=== PATIENT | male | born 2000 | race Caucasian/White ===

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

== ENCOUNTER 2022-02-20 12:23 | Emergency (ER) | payer MEDICAID, SELFPAY ==
[2022-02-20 12:29] VITALS: BP 142/72; PULSE 109; RESP 16; TEMP 36.8; O2SAT 100
--- NOTE | 2022-02-20 12:51 | ED.GENADUL_ITS ---
Discharge Plan Disposition Patient Disposition: HOME Condition: Stable Discharge Details Clinical Impression: Lumbago [facility]: Felecia Ruiz Home Meds and New Rx's Prescriptions: No Action No Known Home Meds 0RF Discharge Instructions Instructions: Low Back Strain (ED) Additional Instructions: Alternate Ice and heat, Take Tylenol or Ibuprofen every 4-6 hours with food as needed for pain and swelling. Take the Flexeril once up to three times daily as needed for muscle spasm. No evidence for UTI or blood in your urine. Follow up with PCP in 7-10 days. Return to ED or be seen sooner for any loss of bowel or bladder control, weakness, numbness, tingling or worsening. Stand Alone Forms: Work Release Discharge Data Discharge Date/Time-TO BE ENTERED AT DEPARTURE: 02/20/22 13:24 Medical Decision Making Please see HPI and physical exam. 21-year-old male presents with lower back pain, reports increased pain after getting out of his car approximately 4 hours prior to arrival. Denies any trauma, falls or heavy lifting initially however upon further questioning does report that he does a lot of bending at his job. Denies any loss of bowel or bladder control, no saddle anesthesia no weakness tingling numbness in his legs. At this time urinalysis ordered. Due to no midline tenderness or crepitus on physical exam x-rays not obtained at this time. If abnormalities in urine I will consider CT to rule out kidney stone. Urinalysis shows no hematuria, no evidence for UTI, no Leukocytes no Nitrites. I do suspect lumbar muscle strain based on exam and HPI. Will DC with Flexeril and give Lidocaine Patch. Discussed home care with patient instructed to alternate heat and ice take Tylenol and ibuprofen. Patient was given a work note for a few days. Patient was given Flexeril tablets to go. Discussed strict return instructions and follow-up care. This text was generated using Provenanceation system, please disregard any oddities of phrase or misspellings. HPI General Mode of arrival: ambulatory . Date/Time Provider Initiated Documentation: 02/20/22 12:39 . Limitations to Documentation: no limitations . Information obtained by: patient, RN notes reviewed and old records reviewed . HPI Narrative: 21 year old male presents to ED with Lower back pain which began 4 hours ago while driving. Describes as tight, and hurts with bending. Denies any loss of bowel or bladder control, no weakness. Reports heavy lifting at his job. Denies N/V/D, no dysuria, denies fever or chills. Patient endorses marijuana use. He did take Tylenol prior to arrival. Denies any other drugs or alcohol. He denie s any dysuria, gross blood in his urine or any other associated symptoms. Related Data Home Medications Medication Instructions Recorded Confirmed Unknown [No Known Home Meds] 02/20/22 02/20/22 Allergies Allergy/AdvReac Type Severity Reaction Status Date / Time Sulfa (Sulfonamide Allergy Other (See Verified 02/20/22 12:33 Antibiotics) Comment) General Stated Complaint: Nk/Back Pain SANTANA: 4 Review of Systems All systems reviewed & are unremarkable except as noted in HPI and below Constitutional Constitutional: Denies weakness ENT Ears, Nose, Mouth, and Throat: Denies neck pain Gastrointestinal Gastrointestinal: Denies fecal incontinence Genitourinary Genitourinary: Reports as per HPI, Denies hematuria, Denies difficulty urinating, Denies penile discharge, Denies urinary frequency, Denies urinary hesitancy and Denies urinary incontinence Musculoskeletal Musculoskeletal: Reports as per HPI, Denies abnormal gait, Reports back pain, Denies myalgias, Denies deformity, Denies loss of height, Denies muscle cramps, Denies muscle weakness, Denies neck pain, Denies numbness, Denies radiating pain into limb, Reports stiffness and Denies tingling Neurologic Neurologic: Denies abnormal gait, Denies numbness, Denies tingling and Denies weakness PFSH All Active Problems (Updated 02/20/22 @ 13:19 by Felecia Ruiz) Lumbago (Acute) Thyroid cyst (Acute) 04/20/2018 Medical History No acute medical problems Family History Mother Diabetes Type 1 Systemic lupus erythematosus Anemia Graves' disease Social History Smoking/Tobacco Use Status: Never Smoking risk assessment performed?: Yes Alcohol Intake: never Drug use: Never Substance use type: does not use Do you feel safe at home: Yes Do you feel safe in your relationship?: Yes Exam Narrative Exam Narrative: constitutional: Alert and oriented x3. Appears stated age. Normal body habitus. Head: Normocephalic, no trauma. Eyes: Pupils PERRL, Pupils 6mm Bilaterally, Equal and reactive, Red reflex noted, EOM's intact. Eyelids symmetrical without lesions, discharge, or swelling. Chest: RRR, Normal S1, S2, distal pulses intact. Resp: Lungs clear to auscultation bilaterally, no wheezes, rales, or rhonchi. Abdomen: Soft, non-distended, Normoactive bowel sounds all 4 quads. Nontender to palpation all 4 quadrants. Musculoskeletal: Normal gait, 5/5 strength to all four extremities. No midline C, T, or L spine tenderness, crepitus or step-off. He does have paraspinous muscle tightening bilaterally in the lower lumbar region. Skin: No suspicious rashes or lesions. Capillary refill less than 2 sec. Neurologic: Cranial nerves II-XII intact. Alert and oriented x 3. Motor: No deficits noted. Sensory: Intact bilaterally all 4 extremities. Course Vital Signs Vital signs: Vital Signs Temperature 36.8 C 02/20/22 12:29 Pulse 109 H 02/20/22 12:29 Respiratory Rate 16 02/20/22 12:29 Blood Pressure 142/72 H 02/20/22 12:29 Pulse Oximetry 100 02/20/22 12:29 Temperature 36.8 C 02/20/22 12:29 Temperature Source Temporal Artery Scan 02/20/22 12:29 Pulse 109 H 02/20/22 12:29 Respiratory Rate 16 02/20/22 12:29 Respiratory Effort 02/20/22 12:29 Blood Pressure 142/72 H 02/20/22 12:29 Blood Pressure Position Sitting 02/20/22 12:29 Pulse Oximetry 100 02/20/22 12:29 Oxygen Delivery Method Room Air 02/20/22 12:29 Oxygen Flow Rate 0 02/20/22 12:29 Pain Level 7 02/20/22 12:29
[2022-02-20 13:02] LABS: Bilirubin Negative (Negative); Blood Negative (Negative); Clarity Clear (Clear); Glucose Negative (Negative); Ketones Negative (Negative); Leukocyte Esterase Negative (Negative); Nitrite Negative (Negative); Specific Gravity >= 1.030 (1.005-1.025); Urobilinogen 0.2 EU/dL (Up TO 0.2)
[2022-02-20] MEDS: Ibuprofen 600 MG TAB PO (13:10)
[2022-02-20] MEDS: Cyclobenzaprine 10 MG TAB, 3 TABS/BTL PO (13:19)
[2022-02-20] MEDS: Lidocaine 5% Patch 1 PATCH TP (13:20)
== END 2022-02-20 13:24 | disposition home or self-care (01) ==
PROVIDERS: Emergency Provider Registered Nurse Emergency
DX: M54.50 Low back pain, unspecified (principal)
CPT/HCPCS: 99283; 81003

== ENCOUNTER 2022-04-01 10:45 | Emergency (ER) | payer MEDICAID, SELFPAY ==
[2022-04-01 10:52] VITALS: BP 132/84; PULSE 90; RESP 17; TEMP 37.2; O2SAT 99
--- NOTE | 2022-04-01 12:15 | DI.RAD_ITS ---
Exam(s) XR FOOT RT COMPLETE EXAM: XR FOOT RT COMPLETE CLINICAL HISTORY: trauma, dorsal and lateral foot pain. TECHNIQUE: 2D digital imaging was performed. Three views. COMPARISON: No exams were available for comparison FINDINGS: BONES: No acute fracture is present. No bony destructive lesion is seen. JOINTS: No dislocation present. SOFT TISSUE: Normal. IMPRESSION: Unremarkable radiographs of the right foot. DATA REPOSITORY: RADIATION DOSE DELIVERED:
--- NOTE | 2022-04-01 12:17 | W.ED.GENAD ---
Discharge Plan Disposition Patient Disposition: HOME Condition: Stable Discharge Details Clinical Impression: Foot injury Primary Care Provider: Unknown,Unknown ED Provider: Lucia Beaver Home Meds and New Rx's Prescriptions: No Action No Known Home Meds Discharge Instructions Instructions: Crutch Instructions (ED), Foot Contusion (ED) Additional Instructions: Please return immediately to the emergency department if you develop any new or worsening symptoms, if your condition does not improve as expected, or if you become otherwise concerned. It is extremely important that you call soon as possible to make an appointment to be seen in follow-up for this visit by your primary care doctor and orthopedics as we discussed. Referrals: Louie Roy MD [ [facility] STAFF PHYSICIAN] - Discharge Data Discharge Date/Time-TO BE ENTERED AT DEPARTURE: 04/01/22 14:01 Medical Decision Making Gerardo Saleh is a 21-year-old man without reported history of medical problems presenting to emergency department with right foot pain. Patient reports that just prior to arrival he was at work doing [email or web address] on a building. Patient reports that the dumpster the demo materials were going into was quite fall, and he threw a piece of countertop into the dumpster which slid back out of the dumpster and landed on his right foot. Patient reports that he has been unable to bear weight on the right foot since the injury. He states that he did not fall, did not get hurt anywhere else, did not hit his head, had no loss of consciousness. He denies any symptoms prior to injury. He denies any other pain, fever, cough, shortness of breath, vomiting, diarrhea, weakness, skin wound, rash. He denies numbness other than mild sensation of numbness to his right fourth and fifth toes. Patient reports pain only in the dorsolateral aspect of his right foot. Denies right-sided ankle pain, right-sided lower leg pain. On exam Pt is well and non-toxic appearing. TTP with edema and ecchymosis of the right dorsal foot without other abnormality of the RLE, right foot NVI. Concern for foot fracture vs contusion. Exam/hx at this time not c/w tib/fib fracture/ankle fracture, calcaneus fracture. Plan for foot xrays. X-rays negative. Patient offered CT scan for further evaluation for possible occult fracture, patient declined. Plan for postop shoe, crutches. Patient's mother requested Mac wrap as well, will provide. I had a discussion with Patient regarding return to emergency department precautions, home care, and importance of outpatient follow-up. Pt verbalizes understanding of the plan and is amenable. Patient discharged to home with clear plan for outpatient follow-up. All questions were answered. Disposition decision was made weighing the risks and benefits of hospitalization versus outpatient treatment, the risk for further decompensation, and the patient's wishes. Medical Records Medical records reviewed: Yes I reviewed the patient's medical records. Imaging Data Radiologic Study: Attestation: I personally reviewed and interpreted this imaging study as follows: Radiologist's impression: EXAM:? XR FOOT RT COMPLETE CLINICAL HISTORY: ? trauma, dorsal and lateral foot pain.? TECHNIQUE:? 2D digital imaging was performed.? Three views. COMPARISON:? No exams were available for comparison FINDINGS: BONES: No acute fracture is present. No bony destructive lesion is seen. JOINTS: No dislocation present. SOFT TISSUE: Normal. IMPRESSION: Unremarkable radiographs of the right foot. HPI General Mode of arrival: wheelchair. Date/Time Provider Initiated Documentation: 04/01/22 11:44. Limitations to Documentation: no limitations. Information obtained by: patient, RN notes reviewed and old records reviewed. HPI Narrative: Gerardo Saleh is a 21-year-old man without reported history of medical problems presenting to emergency department with right foot pain. 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 Patient reports that the dumpster the demo materials were going into was quite fall, and he threw a piece of countertop into the dumpster which slid back out of the dumpster and landed on his right foot. Patient reports that he has been unable to bear weight on the right foot since the injury. He states that he did not fall, did not get hurt anywhere else, did not hit his head, had no loss of consciousness. He denies any symptoms prior to injury. He denies any other pain, fever, cough, shortness of breath, vomiting, diarrhea, weakness, skin wound, rash. He denies numbness other than mild sensation of numbness to his right fourth and fifth toes. Patient reports pain only in the dorsolateral aspect of his right foot. Denies right-sided ankle pain, right-sided lower leg pain. Related Data Home Medications Medication Instructions Recorded Confirmed Unknown [No Known Home Meds] 02/20/22 04/01/22 Allergies Allergy/AdvReac Type Severity Reaction Status Date / Time Sulfa (Sulfonamide AdvReac abd pain Verified 04/01/22 11:38 Antibiotics) General Stated Complaint: Orthopedic SANTANA: 4 Review of Systems Narrative: Constitutional: denies fevers Eyes: denies eye pain ENT: denies ear pain, dental pain, sore throat Cardiovascular: denies chest pain Respiratory: denies SOB, cough GI: denies abdominal pain, vomiting, diarrhea : denies flank pain MSK: denies back pain, neck pain, arthralgias, reports foot pain per HPI Skin: denies rash Neuro: denies headaches, numbness, weakness PFSH All Active Problems Foot injury (Acute) Thyroid cyst (Acute) 04/20/2018 Medical History No acute medical problems Family History Mother Diabetes Type 1 Systemic lupus erythematosus Anemia Graves' disease Social History Smoking/Tobacco Use Status: Never Smoking risk assessment performed?: Yes Alcohol Intake: never Drug use: Never Substance use type: does not use Do you feel safe at home: Yes Do you feel safe in your relationship?: Yes Exam Narrative Exam Narrative: Constitutional: well and [id number], pleasant, conversing normally HENT: head atraumatic/normocephalic/normal inspection, mucous membranes moist Eyes: conjunctiva normal, sclera normal, pupils 3mm b/l Neck: no stridor, normal ROM, trachea midline Resp: normal work of breathing, speaking in full sentences Cardio: normal rate, normal rhythm Skin: warm, dry, normal color, no rash Neuro: alert, not altered, grossly non-focal, normal tone Ext: TTP over right dorsal foot with ecchymosis and edema, no skin wound. Full ROM right toes and right ankle. No TTP of the right ankle, right tib/fib. FROM right knee. DP pulse intact and symmetric. Brisk cap refill right toes. No TTP of the right calcaneus. Psych: normal mood, normal affect, normal behavior Course Vital Signs Vital signs: Vital Signs Temperature 37.2 C 04/01/22 10:52 Pulse 90 04/01/22 10:52 Respiratory Rate 17 04/01/22 10:52 Blood Pressure 132/84 04/01/22 10:52 Pulse Oximetry 99 04/01/22 10:52 Temperature 37.2 C 04/01/22 10:52 Temperature Source Temporal Artery Scan 04/01/22 10:52 Pulse 90 04/01/22 10:52 Respiratory Rate 17 04/01/22 10:52 Respiratory Effort Non-Labored 04/01/22 10:54 Blood Pressure 132/84 04/01/22 10:52 Blood Pressure Position Sitting 04/01/22 10:52 Pulse Oximetry 99 04/01/22 10:52 Oxygen Delivery Method Room Air 04/01/22 10:52 Oxygen Flow Rate 0 04/01/22 10:52 Pain Level 8 04/01/22 10:54
== END 2022-04-01 14:01 | disposition home or self-care (01) ==
PROVIDERS: Emergency Provider Student in an Organized Health Care Education/Training Program
DX: S99.821A Other specified injuries of right foot, initial encounter (principal); W20.8XXA Other cause of strike by thrown, projected or falling object, initial encounter
CPT/HCPCS: 99283; 73630

== ENCOUNTER 2022-09-16 07:51 | Emergency (ER) | payer MEDICAID, SELFPAY ==
[2022-09-16 08:03] VITALS: BP 128/62; PULSE 87; RESP 18; TEMP 37.1; O2SAT 99
--- NOTE | 2022-09-16 08:15 | DI.US_ITS ---
Exam(s) US SCROTUM EXAM: US SCROTUM CLINICAL HISTORY: Right testicular pain. TECHNIQUE: Scrotal ultrasound performed using grayscale, color-flow and spectral Doppler analysis. COMPARISON: No exams were available for comparison FINDINGS: Right testicle: 5.1 x 2 x 4.2 cm Left testicle: 4.8 x 2.1 x 4.9 cm Echogenicity: Normal. Contour: Smooth. Mass: None seen. Microlithiasis: Few scattered microcalcifications are seen bilaterally. Hydrocele: None. Variocele: None. Hernia: No peristalsing bowel loop identified. Epididymis: Left normal. Right epididymis shows a 2 millimeters cyst in the head. DOPPLER: Color: Symmetric and uniform, no hyperemia. Duplex: Bilateral testicular arterial waveforms visualized. IMPRESSION: No acute abnormality. DATA REPOSITORY:
--- NOTE | 2022-09-16 08:22 | ED.GENADUL_ITS ---
Discharge Plan Disposition Patient Disposition: Home Condition: Stable Discharge Details Clinical Impression: Right groin pain Primary Care Provider: [facility] ED Provider: Vincent Mccain Home Meds and New Rx's Prescriptions: No Action No Known Home Meds Discharge Instructions Instructions: Groin Strain (ED) Additional Instructions: At this time no emergent findings were found for your right groin pain. It is recommended that you continue to take ibuprofen and acetaminophen as needed for discomfort. We will put you on light duty for the remainder of the week and please follow-up with your primary care provider next week for reassessment and further treatment as needed. If you develop any new or significant worsening of symptoms feel free to return to the emergency department or local urgent care for reassessment. Stand Alone Forms: Work Release Referrals: Primary Care Provider [Outside] - 2 weeks Discharge Data Discharge Date/Time-TO BE ENTERED AT DEPARTURE: 09/16/22 10:23 Medical Decision Making Patient presenting the emergency department for chief complaint of right groin and testicle pain. Patient states that he was lifting and helping move on Friday and then on Friday morning started noticing some right groin and testicular pain. Patient has been taking ibuprofen which helps on a limited basis but still having significant amount of pain or discomfort this morning. Patient denies any other injury or trauma or other symptoms. Physical exam shows diffuse right testicle tenderness, no obvious right inguinal hernia, normal abdominal exam, normal exam of the right thigh. We will plan on performing ultrasound imaging of right testicle due to testicular pain and give ibuprofen pending results. Pulmonary report from the traffic survey technician stated that ultrasound was negative for any acute findings. Will recommend supportive underwear and patient to continue to use NSAIDs or acetaminophen as needed for pain. Did discuss return and follow-up precautions and I do feel that patient should follow-up with his primary care provider next week for reassessment. After discussion of diagnosis and plan of care patient has no further needs, questions, or concerns and states clear understanding to return to the emergency department for any worsening symptoms. This documentation was generated using [employer] system, please disregard any oddities of phrase or misspellings. Sign Out No HPI General Mode of arrival: ambulatory . Date/Time Provider Initiated Documentation: 09/16/22 08:13 . Limitations to Documentation: no limitations . Information obtained by: patient . History of Present Illness 22 year old M presents to the emergency department with the chief complaint of Right groin/testicular pain, described as moderate, Quality is described as aching, and is localized to the genitals and right. Patient abdomen. Patient started experiencing this day(s) (3) and it has been constant. No relieving factors improve symptom(s), Movement worsens symptoms . Patient no will no other symptoms.. Patient did receive the following treatments prior to arrival, NSAID Related Data Home Medications Medication Instructions Recorded Confirmed Unknown [No Known Home Meds] 02/20/22 09/16/22 Allergies Allergy/AdvReac Type Severity Reaction Status Date / Time Sulfa (Sulfonamide AdvReac abd pain Verified 09/16/22 09:59 Antibiotics) General Stated Complaint: Male Reproductive Problem SANTANA: 4 Review of Systems Narrative: 8 systems reviewed and unremarkable except what is marked below. Genitourinary Genitourinary: Reports as per HPI, Denies genital pain, Denies dysuria, Denies penile discharge, Denies scrotal swelling, Denies testicular mass and Reports testicular pain Musculoskeletal Musculoskeletal: Denies back pain, Denies arthralgias, Denies numbness and Denies tingling Integumentary/Breasts Skin/Breast: Denies rash Neurologic Neurologic: Denies numbness and Denies tingling PFSH All Active Problems (Updated 09/16/22 @ 10:02 by Vincent Mccain NP) Right groin pain (Acute) Thyroid cyst (Acute) 04/20/2018 Medical History No acute medical problems Family History Mother Diabetes Type 1 Systemic lupus erythematosus Anemia Graves' disease Social History Smoking/Tobacco Use Status: Never Smoking risk assessment performed?: Yes Alcohol Intake: never Drug use: Never Substance use type: does not use Do you feel safe at home: Yes Do you feel safe in your relationship?: Yes Exam Const General: cooperative Orientation: alert, awake and oriented x3 Resp Effort & Inspection: normal respiratory effort and able to speak in complete sentences Auscultation: clear to auscultation bilaterally Cardio Rate: regular rate Rhythm: regular rhythm Heart Sounds: S1 normal and S2 normal GI Inspection: normal to inspection Palpation: soft, no hepatosplenomegaly, not firm, no guarding, no masses, no pulsatile masses, not rigid and no splenomegaly Auscultation: normal bowel sounds Male General Exam: Yes normal external exam and No lesions Penis: normal penis Meatus: meatus normal Scrotum: scrotum normal, cremasteric reflex present, not erythematous and no scrotal swelling Testes: normal, testicular lie normal and testicular tenderness Skin General skin exam: no rashes or lesions noted Neuro General: patient alert, patient awake, patient oriented x3, gait normal and mov es all extremities Course Vital Signs Vital signs: Vital Signs Temperature 37.1 C 09/16/22 08:03 Pulse 87 09/16/22 08:03 Respiratory Rate 18 09/16/22 08:03 Blood Pressure 128/62 09/16/22 08:03 Pulse Oximetry 99 09/16/22 08:03 Temperature 37.1 C 09/16/22 08:03 Pulse 87 09/16/22 08:03 Respiratory Rate 18 09/16/22 08:03 Respiratory Effort 09/16/22 08:07 Blood Pressure 128/62 09/16/22 08:03 Blood Pressure Position Sitting 09/16/22 08:03 Pulse Oximetry 99 09/16/22 08:03 Oxygen Delivery Method Room Air 09/16/22 08:03 Oxygen Flow Rate 0 09/16/22 08:03 PAWSS Have you Been Recently Intoxicated or Drunk Within the Last 30 days?: No Have you Ever Experienced Previous Episodes of Alcohol Withdrawal?: No Have you ever Experienced Withdrawal Seizures?: No Have you ever Experienced Delirium Tremens(DT)s?: No Have you ever undergone Alcohol Rehabilitation Treatment (i.e, inpt ot outpatient treatment programs)?: No Have you ever Experienced Blackouts?: No Have you ever Combined Alcohol with other Downers within the last 90 days?: No Have you ever Combined Alcohol with any other Substance of Abuse during the last 90 days?: No Result: 0
[2022-09-16] MEDS: Ibuprofen 600 MG TAB PO (08:44)
--- NOTE | 2022-09-16 10:08 | NUR.NOTE ---
Nursing Note: Referral given to Care management for PCP ref groin pain Per Nathaniel Mccain
== END 2022-09-16 10:23 | disposition home or self-care (01) ==
PROVIDERS: Emergency Provider Nurse Practitioner Family
DX: R10.31 Right lower quadrant pain (principal); N50.811 Right testicular pain; X50.0XXA Overexertion from strenuous movement or load, initial encounter
CPT/HCPCS: 99284; 76870; 99283

== ENCOUNTER 2022-09-23 22:04 | Outpatient (REF) | payer MEDICAID, SELFPAY ==
[2022-09-25 15:51] LABS: Chlamydia Result Negative (Negative); GC Result Negative (Negative)
== END 2022-09-23 22:05 | disposition home or self-care (01) ==
LOC: LBN 22:04
PROVIDERS: Visit Provider Nurse Practitioner Family
DX: R10.31 Right lower quadrant pain (principal); Z11.3 Encounter for screening for infections with a predominantly sexual mode of transmission
CPT/HCPCS: 87491; 87591; 87086

== ENCOUNTER 2022-10-03 14:33 | Outpatient (REF) | payer MEDICAID, SELFPAY ==
[2022-10-03 15:02] LABS: Abs Immature Grans 0.01 10^3/uL (0.0-0.06); Absolute Basophil Count 0.04 10^3/uL (0.0-0.2); Absolute Eosinophil Count 0.23 10^3/uL (0.0-0.7); Absolute Lymphocyte Count 2.25 10^3/uL (1.2-3.4); Absolute Monocyte Count 0.48 10^3/uL (0.1-0.8); Basophils % 0.5; Eosinophils % 3.1; HCT 48.1 % (40.0-50.0); HGB 16.4 g/dL (13.5-17.5); Immature Grans % 0.1; MCHC 34.1 % (32.0-36.0); MCV 94 fL (80-95); Monocytes % 6.4; Neutrophils % 59.9; Platelet Count 254 10^3/uL (130-400); RBC 5.12 10^6/uL (4.36-5.78); RDW 11.8 % (11.8-14.1); WBC 7.51 10^3/uL (4.4-10.8)
[2022-10-03 15:05] LABS: ESR < 1 mm/hr (0-15)
[2022-10-03 15:09] LABS: ALT 21 U/L (16-63); AST 17 U/L (15-37); Albumin 4.4 g/dL (3.4-5.0); Alkaline Phosphatase 77 U/L (46-116); Anion Gap 5.8 mmol/L (3-11); BUN 14 mg/dL (7-18); Bilirubin, Total 0.3 mg/dL (0.2-1.0); C-Reactive Protein 0.06 mg/dL (0.0-0.3); CO2 30.2 mmol/L (21.0-32.0); Calcium 9.1 mg/dL (8.5-10.1); Chloride 104 mmol/L (98-107); Estimated GFR 109.81 (mL/min/1.73m2); Glucose 93 mg/dL (74-106); Potassium 4.9 mmol/L (3.5-5.1); Sodium 140 mmol/L (136-145); TSH (W/Ref FT4) 1.69 uIU/mL (0.36-3.74); Total Protein 7.3 g/dL (6.4-8.2)
[2022-10-03 22:18] LABS: Rheumatoid Factor <8.6 IU/mL (<12.0)
[2022-10-04 14:09] LABS: ANA Interpretation Positive (Negative)
== END 2022-10-03 14:34 | disposition home or self-care (01) ==
LOC: NCHCN 14:33
PROVIDERS: Visit Provider Nurse Practitioner Family
DX: F41.8 Other specified anxiety disorders (principal); E07.9 Disorder of thyroid, unspecified; R41.840 Attention and concentration deficit; Z83.2 Family history of diseases of the blood and blood-forming organs and certain disorders involving the immune mechanism; Z83.3 Family history of diabetes mellitus; Z71.89 Other specified counseling
CPT/HCPCS: 80053; 85652; 84443; 85025; 86038; 86140; 86431

== ENCOUNTER 2023-01-08 15:19 | Emergency (ER) | payer MEDICAID, SELFPAY ==
[2023-01-08] VITALS (10 sets, daily range): BP systolic 95–131; BP diastolic 59–94; PULSE 57–80; RESP 20; TEMP 36.8; O2SAT 100
--- NOTE | 2023-01-08 15:45 | DI.CT_ITS ---
Exam(s) CT ABDOMEN PELVIS W EXAM: CT ABDOMEN PELVIS W CLINICAL HISTORY: sudden rt groin pain after heavy lifting, ? hernia TECHNIQUE: Imaging Protocol: Axial computed tomography images with coronal and sagittal reformatted images were created and reviewed CONTRAST MATERIAL: Intravenous: Omnipaque 350 Contrast volume:100 mL Oral: No COMPARISON: CT CT ABDOMEN PELVIS W from 05/10/2019 FINDINGS: ABDOMEN: Lung Bases: Normal where visualized. Liver: Normal density. No measurable mass. Portal, Superior Mesenteric, and Splenic Veins: Unremarkable. Gallbladder and Biliary Tract: No radiodense calculus or dilation. Pancreas: Normal density, no abnormal calcifications or inflammatory process. Spleen: Normal. Adrenals: No masses seen. Kidneys: Normal size, contour and axis. No radiodense stones or obstructive uropathy. No masses seen. Abdominal Aorta: Abdominal portion non-dilated. Bowel: No obstruction or bowel wall thickening. Status post appendectomy. Peritoneal Cavity: No ascites, collection or mesenteric inflammatory response. No free air. Lymph Nodes: Within normal limits. Bones: Within normal limits for the patient's age. Soft Tissues: Unremarkable. No evidence of a right inguinal hernia. There is a small fat containing left inguinal hernia. PELVIS: Bladder: Symmetric distention, no gross wall thickening. Reproductive Organs: Unremarkable as visualized. Lymph Nodes: Within normal limits. Bones: Within normal limits for the patient's age. IMPRESSION: 1. No acute abdominal or pelvic process. 2. No evidence of a right inguinal hernia or soft tissue mass or trauma. RADIATION DOSE DELIVERED: 682.03mGy.cm Total DLP DATA REPOSITORY: All CT scans at this facility are submitted to the National Radiology Data Registry (NRDR) Dose Index Registry (DIR) with the [employer] (ACR). RADIATION OPTIMIZATION: All CT scans at this facility use at least one of these dose optimization te chniques: automated exposure control; mA and/or kV adjustment per patient size (includes targeted exa ms where dose is matched to clinical indication); or iterative reconstruction.
[2023-01-08 15:58] LABS: Abs Immature Grans 0.03 10^3/uL (0.0-0.06); Absolute Basophil Count 0.07 10^3/uL (0.0-0.2); Absolute Eosinophil Count 0.12 10^3/uL (0.0-0.7); Absolute Lymphocyte Count 2.65 10^3/uL (1.2-3.4); Absolute Neutrophil Count 5.74 10^3/uL (1.2-6.7); Basophils % 0.8; Eosinophils % 1.3; HCT 45.3 % (40.0-50.0); HGB 16.3 g/dL (13.5-17.5); Immature Grans % 0.3; Lymphocytes % 29.1; MCH 32.6 pg (27.0-33.0); MCV 91 fL (80-95); MPV 8.8 fL (8.0-11.0); Monocytes % 5.5; Platelet Count 263 10^3/uL (130-400); RDW 11.9 % (11.8-14.1); RDW-SD 39.7 fL; WBC 9.11 10^3/uL (4.4-10.8)
[2023-01-08] MEDS: ACETAMINOPHEN 1,000 MG/100 ML BTL 100 MG (15:59)
--- NOTE | 2023-01-08 15:59 | ED.GENADUL_ITS ---
Discharge Plan Disposition Patient Disposition: Home Discharge Details Chief Complaint: Abd Prob Clinical Impression: Abdominal pain Primary Care Provider: Tank Stratton ED Provider: Anthony Beaver Home Meds and New Rx's Prescriptions: No Action No Known Home Meds Discharge Data Discharge Date/Time-TO BE ENTERED AT DEPARTURE: 01/08/23 20:19 Medical Decision Making 1605 --22-year-old male here with 1 hour of right groin pain after lifting heavy object at work. Patient has no testicular swelling or scrotal tenderness. On palpation of right inguinal ring I appreciate a small hernia. The patient coughs it is tender. Hernia self reduces spontaneously and is not present at rest. Abdominal exam benign. Given degree of pain, plan to obtain CT of the abdomen pelvis to assess for acute surgical pathology. -- CT of the abdomen pelvis was interpreted by radiology: IMPRESSION: 1. No acute abdominal or pelvic process.? 2. No evidence of a right inguinal hernia or soft tissue mass or trauma. Labs were reviewed. Patient reassessed remained stable. Patient was dispositioned during EMR downtime. Please see paper record regarding discharge instructions. HPI General Mode of arrival: ambulatory . Date/Time Provider Initiated Documentation: 01/08/23 15:33 . Limitations to Documentation: no limitations . Information obtained by: patient . HPI Narrative: 22-year-old male presents with chief complaint of abdominal pain. Patient notes he was lifting heavy object at work and felt sudden discomfort described as a popping sensation in the right groin and testicle. This occurred about an hour ago and has persisted. Pain is persistent but waxes and wanes. No associated testicular swelling. No other symptoms. Related Data Home Medications Medication Instructions Recorded Confirmed Unknown [No Known Home Meds] 02/20/22 09/16/22 Allergies Allergy/AdvReac Type Severity Reaction Status Date / Time Sulfa (Sulfonamide AdvReac abd pain Verified 09/16/22 09:59 Antibiotics) General Stated Complaint: Abd Prob SANTANA: 3 Review of Systems All systems reviewed & are unremarkable except as noted in HPI and below Genitourinary Genitourinary: Reports as per HPI PFSH All Active Problems (Updated 01/12/23 @ 22:29 by Anthony Beaver MD) Abdominal pain (Acute) Anxiety and depression (Chronic) GERD (gastroesophageal reflux disease) (Chronic) Thyroid disease (Acute) Tobacco abuse (Acute) Marijuana abuse (Acute) Mood disorder (Acute) Thyroid cyst (Acute) 04/20/2018 Medical History No acute medical problems Family History Mother Diabetes Type 1 Systemic lupus erythematosus Anemia Graves' disease Social History Smoking/Tobacco Use Status: Never Smoking risk assessment performed?: Yes Alcohol Intake: never Drug use: Never Substance use type: does not use Do you feel safe at home: Yes Do you feel safe in your relationship?: Yes Exam Const General: cooperative and no acute distress HENMT Mouth: moist mucous membranes Eyes Conjunctivae: normal conjunctivae Sclera: normal sclerae Resp Auscultation: clear to auscultation bilaterally, no rales, no rhonchi and no wheezes Cardio Rate: regular rate and not tachycardic Rhythm: regular rhythm GI Palpation: soft, not firm, no guarding, no masses, not rigid and nontender Male General Exam: Yes normal external exam Penis: normal penis Scrotum: scrotum normal, inguinal hernia on the right (Small tender palpable hernia with cough only, reduces spontaneously), no masses and no scrotal swelling Testes: normal, no testicular swelling and no testicular tenderness Skin General skin exam: no rashes or lesions noted Neuro General: patient alert, patient awake, patient oriented x3 and tone normal Course Vital Signs Vital signs: Vital Signs Temperature 36.8 C 01/08/23 15:22 Pulse 79 01/08/23 15:22 Respiratory Rate 20 01/08/23 15:22 Blood Pressure 109/91 H 01/08/23 15:22 Pulse Oximetry 100 01/08/23 15:22 Temperature 36.8 C 01/08/23 15:22 Temperature Source Oral 01/08/23 15:22 Pulse 79 01/08/23 15:22 Respiratory Rate 20 01/08/23 15:22 Blood Pressure 109/91 H 01/08/23 15:22 Blood Pressure Position Sitting 01/08/23 15:22 Pulse Oximetry 100 01/08/23 15:22 Oxygen Delivery Method Room Air 01/08/23 15:22 Oxygen Flow Rate 0 01/08/23 15:22 Pain Level 10 01/08/23 15:35
[2023-01-08 16:23] LABS: ALT 108 U/L (16-63); AST 246 U/L (15-37); Albumin 4.8 g/dL (3.4-5.0); Alkaline Phosphatase 71 U/L (46-116); BUN 10 mg/dL (7-18); CREATININE 1.1 mg/dL (0.70-1.30); Calcium 9.3 mg/dL (8.5-10.1); Chloride 105 mmol/L (98-107); Estimated GFR 97.95 (mL/min/1.73m2); Glucose 93 mg/dL (74-106); Potassium 3.7 mmol/L (3.5-5.1); Sodium 140 mmol/L (136-145); Total Protein 7.6 g/dL (6.4-8.2)
[2023-01-08] MEDS: Omnipaque 350 MG/ML 100 ML BTL IJ (16:40)
[2023-01-08] MEDS: Normal Saline - Diluent 50 ML VIAL IJ (16:40)
--- NOTE | 2023-01-08 17:31 | DI.VRAD_ITS ---
PROCEDURE INFORMATION: Exam: CT Abdomen And Pelvis With Contrast Exam date and time: 01/08/2023 4:43 PM Age: 22 years old Clinical indication: Sudden RT groin pain after heavy lifting, ? hernia TECHNIQUE: Imaging protocol: Computed tomography of the abdomen and pelvis with contrast. Contrast material: 350; Contrast volume: 100 ml; Contrast route: INTRAVENOUS (IV); COMPARISON: CT ABDOMEN PELVIS W 05/10/2019 11:37 PM FINDINGS: Liver: Unremarkable liver. No mass identified. Gallbladder and bile ducts: The gallbladder is unremarkable. No calcified stones. No ductal dilation. Pancreas: No ductal dilation. No pancreatic lesion seen. Spleen: The spleen is unremarkable. No splenomegaly. Adrenal glands: The adrenal glands are unremarkable. No defined mass. Kidneys and ureters: The kidneys are unremarkable. No hydronephrosis. Stomach and bowel: Unremarkable. No obstruction. No mucosal thickening. Appendix: There has been an appendectomy. Intraperitoneal space: Unremarkable. No free air. No significant fluid collection. Vasculature: No abdominal aortic aneurysm. Lymph nodes: No enlarged lymph nodes. Urinary bladder: Unremarkable as visualized. Reproductive: Unremarkable as visualized. Bones/joints: Unremarkable. No acute fracture. Soft tissues: There is a small fat-containing left inguinal hernia. IMPRESSION: No evidence of acute traumatic injury in the abdomen pelvis. Dictated and Authenticated by: Elana Thomas MD. Ordering:ROBIN Cruz MD
== END 2023-01-08 20:19 | disposition home or self-care (01) ==
LOC: ER 19:02
PROVIDERS: Emergency Provider Student in an Organized Health Care Education/Training Program; PCP Family Medicine
DX: R10.9 Unspecified abdominal pain (principal)
CPT/HCPCS: 80053; 99285; 74177; 85025; 99284; J0131; J3490

== ENCOUNTER 2023-02-11 17:25 | Outpatient (REF) | payer MEDICAID, SELFPAY ==
[2023-02-11 18:10] LABS: ALT 26 U/L (16-63); AST 28 U/L (15-37); Albumin 4.7 g/dL (3.4-5.0); Alkaline Phosphatase 65 U/L (46-116); Anion Gap 5.1 mmol/L (3-11); BUN 15 mg/dL (7-18); Bilirubin, Total 0.5 mg/dL (0.2-1.0); CO2 30.9 mmol/L (21.0-32.0); CREATININE 1.1 mg/dL (0.70-1.30); Calcium 9.7 mg/dL (8.5-10.1); Chloride 103 mmol/L (98-107); Estimated GFR 97.95 (mL/min/1.73m2); Glucose 103 mg/dL (74-106); Potassium 4.9 mmol/L (3.5-5.1); Sodium 139 mmol/L (136-145)
== END 2023-02-11 17:26 | disposition home or self-care (01) ==
LOC: NCHCN 17:25
PROVIDERS: PCP Family Medicine; Visit Provider Nurse Practitioner Family
DX: R79.89 Other specified abnormal findings of blood chemistry (principal)
CPT/HCPCS: 80053

== ENCOUNTER 2023-03-18 06:01 | Day surgery (SDC) | payer MEDICAID, SELFPAY ==
--- NOTE | 2023-03-17 18:32 | W.PM.DSUDISC ---
Discharge Plan Disposition Condition: Good Discharge Details Attending Provider: Lucretia Cueva Primary Care Provider: Tank Stratton Home Meds and New Rx's Prescriptions: No Action acetaminophen [Tylenol Extra Strength] 500 mg tablet 500 mg PO Q6H PRN famotidine 20 mg tablet 20 mg PO BID Discharge Instructions Activity:: see above Remove Dressings/Wound Care:: 24 hours Shower/Bathe:: 24 hours Diet:: As Tolerated
[2023-03-18] VITALS (13 sets, daily range): BP systolic 87–121; BP diastolic 40–82; PULSE 56–90; RESP 10–21; TEMP 36.2–36.7; O2SAT 97–100; BMI 24.0
[2023-03-18] MEDS: Acetaminophen 500 MG TAB 1000 MG PO (06:40)
[2023-03-18] MEDS: Gabapentin 300 MG CAP 600 MG PO (06:41)
--- NOTE | 2023-03-18 06:51 | W.ANESPRE ---
General Info Date of Service Date Performed: 03/18/23 Height: 5 ft 5 in Weight: 65.4 kg Body Mass Index (BMI): 24.0 Surgical Procedure: Operation Date: 03/18/23 07:40 Proposed Procedure Side Surgeon p Hernia Inguinal Laparoscopic possible Open Bilateral Lucretia Cueva DO Meds Allergies and Home Medications Allergies Allergy/AdvReac Type Severity Reaction Status Date / Time Sulfa (Sulfonamide AdvReac abd pain Verified 03/14/23 10:07 Antibiotics) Home Medication Medication Instructions Recorded famotidine 20 mg tablet 20 mg PO BID 02/21/23 acetaminophen 500 mg tablet 500 mg PO Q6H PRN 02/24/23 (Tylenol Extra Strength) Current Visit Medications: Current Medications Generic Name Dose Route Start Last Admin Trade Name Freq PRN Reason Stop Dose Admin Acetaminophen 1,000 mg 03/18/23 06:00 03/18/23 06:40 Acetaminophen 500 Mg Tab PO 03/18/23 16:00 1,000 mg PREOP CLARK Administration Gabapentin 600 mg 03/18/23 06:00 03/18/23 06:41 Gabapentin 300 Mg Cap PO 03/18/23 16:00 600 mg PREOP CLARK Administration Ringer's Solution 1,000 mls @ 80 mls/hr 03/18/23 06:00 IV 04/13/23 23:59 INFUSION CLARK Cefazolin Sodium/Dextrose 2 gm in 50 mls @ 100 mls/hr 03/18/23 06:00 Ancef Duplex IVPB 03/18/23 16:00 PREOP CLARK Ondansetron HCl 4 mg/ Sodium 52 mls @ 200 mls/hr 03/18/23 07:41 Chloride IVPB 04/17/23 07:40 Q6H PRN PRN IV Miscellaneous Supplies 1 each 03/18/23 06:00 Iv Access IV 04/13/23 23:59 DIRECTED CLARK Morphine Sulfate 2 mg 03/18/23 07:41 Morphine 4 Mg/Ml Syr IVP 04/17/23 07:40 Q1H PRN PRN Sodium Chloride 0 ml 03/18/23 06:00 Normal Saline Flush 10 Ml Syr IV 04/13/23 23:59 PRN PRN Sodium Chloride 0 ml 03/18/23 06:00 Normal Saline 10 Ml Vial IJ 04/13/23 23:59 DIRECTED PRN Sterile Water 0 ml 03/18/23 06:00 Water,Injection,Sterile 10 Ml Vial IJ 04/13/23 23:59 DIRECTED PRN Tramadol HCl 100 mg 03/18/23 07:41 Tramadol 50 Mg Tab PO 04/17/23 07:40 Q6H PRN PRN Pain PFSH Active Problems Active Problems: Problem Status Onset Code 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 Mood disorder F39 Marijuana abuse F12.10 Tobacco abuse Z72.0 Thyroid disease E07.9 GERD (gastroesophageal reflux disease) K21.9 Anxiety and depression F41.9, F32.A Hernia K46.9 RIVAS positive R76.8 Malar rash R21 Heart burn R12 Poor concentration R41.840 Bilateral inguinal hernia without obstruction or gangrene K40.20 Medical History Medical History Elevated liver function tests resolved Family history of diabetes mellitus Family history of systemic lupus erythematosus No acute medical problems Surgical History Surgical History Hx of appendectomy Tobacco Smoking/Tobacco Use Status: Current-Occasional Tobacco Type: cigarettes Smoking cigarettes per day: 1 Alcohol Alcohol Intake: current Alcohol intake frequency: a few times a month Substance Use Substance use: Daily Substance use type: marijuana Details: pt denies recent alcohol use last marijuana t-2, inhaled Vital Signs and Lab Results Vital Signs Most Recent Vital Signs in EMR: Most Recent Vital Signs Temp Pulse Resp BP Pulse Ox 36.5 C 89 18 115/69 97 03/18/23 06:13 03/18/23 06:13 03/18/23 06:13 03/18/23 06:13 03/18/23 06:13 Lab Results Blood Type / Crossmatch: No Data to Display Complete Blood Count: No Data to Display Complete Metabolic Panel: No Data to Display Liver Function Panel: No Data to Display Coagulation Panel: No Data to Display Cardiac Panel: No Data to Display Arterial Blood Gas: No Data to Display Venous Blood Gas: No Data to Display Pancreas Panel: No Data to Display Thyroid Panel: No Data to Display Infectious Disease: No Data to Display Blood Cultures: No Data to Display Toxicology Panel: No Data to Display Anesthesia Assessment and Plan Anesthesia History Personal History: No History of Anesthesia Complications Family History: No Family History of Anesthesia Complications Exercise Tolerance Exercise Tolerance: Metabolic Equivalents>4 Pertinent Negatives Pertinent Negatives: No Symptoms of GERD, No Major Cardiovascular Symptoms or Complaints and No Major Pulmonary Symptoms or Complaints Cardiac & Pulmonary Exam Cardiac Exam: Normal S1/S2 Heart Sounds Pulmonary Exam: Clear Bilateral Breath Sounds Implantable Cardiac Device Does patient have a Pacemaker or an ICD?: No Airway Exam Known Difficult Airway: No Mallampati Class: 2 Mouth Opening: Normal (> 3cm) Thyromental Distance: Greater than 3 cm Neck Range of Motion: Full ROM Neck Circumference: Normal Teeth Condition: Normal Dentition ASA Classification ASA Score: ASA 2 Emergency Case?: No NPO Status NPO Status: NPO Clears >2 hours, Solids >8 hours Anesthesia Plan Resuscitation Status: Full Code Anesthesia Technique: General Anesthesia Airway Planned: Endotracheal Tube Monitors Used: Standard Monitors and SedLine
[2023-03-18] MEDS: Lactated Ringers 1,000 ML 80 ML IV (07:07)
--- NOTE | 2023-03-18 07:13 | HPE_ITS ---
Assessment and Plan Assessment and plan (1) Bilateral inguinal hernia without obstruction or gangrene: Status: Acute Assessment and plan: Mr. Saleh is a pleasant 22-year-old gentleman who was seen in the office by Dr. Cueva for left inguinal hernia. The patient has bilateral pain and on exam he does seem to have small bilateral hernias. She discussed laparoscopic hernia repairs possible open. I saw the patient today in same-day surgery. We r eviewed the risks and benefits of surgery. Risks, benefits and complications have been reviewed. Complications include but are not limited to bleeding, infection, injury to vas, vessels and nerves, injury to bowel, recurrence (3- 5%), chronic pain and adverse reaction to medications. Questions were entertained and answered to their satisfaction and they wished to proceed. He seems to have a good understanding of the risks and benefits and complications. Anesthesia: general Previous surgical intolerances: No Previous surgical complications: No Pulmonary risk factors: no Planned procedure: Yes Sleep apnea risks: No Can climb one flight of stairs (12-13 steps) in less than 30 seconds without stopping and without symptoms: Yes The surgery proposed for this patient is: low risk Active cardiac conditions: none Active risk factors: none ASA (acetylsalicylic acid): not used Beta blockers: not used proceed with Bilateral laparoscopic inguinal hernia repair, possible open. History of Present Illness Narrative: Mahesh reports he went to the ER for right groin pain after lifting a heavy object, had CT scan which showed a small inguinal Lef tside hernia, but pt notes pain is on his right side.? Pain level this morning 4/10, tolerable, consistant, if I walk to much it hurts.? Pt reports he is on light duty at work. he also complains of bilateral inguinal pain when coughing. He notes pain on the right side.? The pain started about 6-8 weeks ago, while he was at work and carrying boxes..? He states he has pain every day.? The pain comes and goes.? It's worse if he is up moving around, particularlyWorse w/ mopping and sweeping.? He is currently on light duty at work.? He does not seem to be getting any better, even though he is on light duty.? He has not been doing any strenuous activities in his free time.? Never had any surgery in this area before. he does not notice a bulge. ? He has never had any pain or problems on the right side or the left side in the past. He is very anxious this morning. He has not had any new symptoms. laprascopic appendectomy. No problems w/ anesthesia.? Uses THC on a regular basis.? PMHx Gerd? Humphrey not started on H2 jassi.? borderline for lupus Review of Systems All systems reviewed & are unremarkable except as noted in HPI and below PFSH All Active Problems Thyroid cyst (Acute) 04/20/2018 Mood disorder (Acute) Marijuana abuse (Acute) Tobacco abuse (Acute) Thyroid disease (Acute) GERD (gastroesophageal reflux disease) (Chronic) Anxiety and depression (Chronic) Hernia (Chronic) RIVAS positive (Acute) Malar rash (Acute) Heart burn (Acute) Poor concentration (Acute) Bilateral inguinal hernia without obstruction or gangrene (Acute) Medical History Elevated liver function tests resolved Family history of diabetes mellitus Family history of systemic lupus erythematosus No acute medical problems Surgical History Hx of appendectomy Family History Mother Diabetes Type 1 Systemic lupus erythematosus Anemia Graves' disease Social History Smoking/Tobacco Use Status: Current-Occasional Tobacco Type: cigarettes Smoking risk assessment performed?: Yes Alcohol Intake: current Alcohol Intake frequency: a few times a month Drug use: Daily Substance use type: marijuana Details: pt denies recent alcohol use last marijuana t-2, inhaled Do you feel safe at home: Yes Do you feel safe in your relationship?: Yes Additional Social history: unable to assess privately Meds Allergies and Home Medications Allergies Allergy/AdvReac Type Severity Reaction Status Date / Time Sulfa (Sulfonamide AdvReac abd pain Verified 03/14/23 10:07 Antibiotics) Home Medications Medication Instructions Recorded Confirmed Type famotidine 20 mg tablet 20 mg PO BID 02/21/23 03/18/23 History acetaminophen 500 mg tablet 500 mg PO Q6H PRN 02/24/23 03/14/23 History (Tylenol Extra Strength) Exam Const General: cooperative, comfortable and no acute distress Nutritional Appearance: average body habitus Orientation: alert and oriented x3 HENMT Head: normocephalic and atraumatic Resp Effort & Inspection: normal respiratory effort Auscultation: clear to auscultation bilaterally Cardio Rate: regular rate Rhythm: regular rhythm Heart Sounds: no gallops, no murmurs and no rubs GI Inspection: normal to inspection Palpation: soft, no hepatosplenomegaly and tender (mild bilateral tenderness) Results Last Vital Signs Temp 97.7 F 03/18/23 06:13 Pulse 89 03/18/23 06:13 Resp 18 03/18/23 06:13 BP 115/69 03/18/23 06:13 Pulse Ox 97 03/18/23 06:13
--- NOTE | 2023-03-18 07:21 | W.PM.OP ---
Date of service: 03/18/23 Time of Service: 09:40 Operative Note Operative Note DATE OF PROCEDURE: 03/18/23 PRE-OP DIAGNOSIS: Bilateral inguinal hernias POST-OP DIAGNOSIS: other (Right inguinal hernia) PROCEDURE: Laparoscopic Bilateral inguinal hernia repair with mesh SURGEON: Julissa Ramachandran FLEX O WRITER OPERATOR: Brie Manzo Refer to Anesthesia Record ESTIMATED BLOOD LOSS: 15 PATHOLOGY: none sent COMPLICATIONS: None Patient was transported to: PACU Patient's condition: stable Implants: Bard 3D Mesh: Right side: [id number] REF- [id number] Left side: [id number] REF- [id number] Indications: Mr. Saleh is a pleasant 22-year-old gentleman who was seen in the office by Dr. Cueva for left inguinal hernia.? The patient has bilateral pain and on exam he does seem to have small bilateral hernias.? She discussed laparoscopic hernia repairs possible open.? I saw the patient today in same-day surgery.? We reviewed the risks and benefits of surgery.? Risks, benefits and complications have been reviewed. Complications include but are not limited to bleeding, infection, injury to vas, vessels and nerves, injury to bowel, recurrence (3-5%), chronic pain and adverse reaction to medications. Questions were entertained and answered to their satisfaction and they wished to proceed.? He seems to have a good understanding of the risks and benefits and complications. Procedure Description: After informed consent was obtained the patient was taken to the OR and placed in a supine position. He was then placed under general anesthesia and he was intubated without difficulty. A timeout was done, and the patient's name, date of , allergies to medications, DVT prophylaxis, antibiotic given, the post procedure were all reviewed. Fire risk was assessed. Next a Bustillo catheter was placed in a standard sterile surgical fashion. At this point the abdomen was prepped and draped in a sterile surgical fashion. Quarter percent bupivacaine was then injected just underneath the umbilicus. A 12 mm incision was made and dissection was taken down through the subcutaneous tissue to the fascia. The fascia was opened just to the right of midline. An S retractor was placed and the rectus muscle was then retracted. I then swept the muscle away from the peritoneum. The balloon dissector was then inserted all the way down to the pubic symphysis. The balloon was inflated until both inguinal areas were dissected. The balloon was removed and the preperitoneal space was insufflated. Once insufflated the camera was placed. 2 more ports were placed one just above the pubic symphysis which was 5 mm in size and another midway between the umbilicus and the pubic symphysis. This was also a 5 mm port. Next the right inguinal area was gently dissected making sure to pull the peritoneum down. The cord structures were identified. No fatty tissue was identified on the cord structures. There was no hernia sac. Next I made sure that the peritoneum was down all the way up to the iliac crest. The pubic symphysis was also cleared for good visualization. Next the left inguinal area was gently dissected in the same way. First the peritoneum was brought down away from the cord structures and away from the pubic symphysis. The cord structures were identified and a sac was noted. The hernia sac was gently dissected away from the cord structures and reduced. No cord lipoma was identified. Once there was a good space created both on the right and left for the mesh a 3D left mesh was placed into the peritoneum through the 12 mm port. It was secured at the lacunar ligament and just above the anterior superior iliac spine. There was good coverage medially. I made sure that the peritoneum was down below the mesh edge. Next the right 3D mesh was placed into the peritoneum. It was again secured at the lacunar ligament and just above the anterior superior iliac spine. There was good overlap at the pubic symphysis of both meshes. Again I made sure that the peritoneum and the hernia sac were below the edge of the mesh. At this point the 5 mm ports were removed. Lastly the camera was removed and the 12 mm port at the umbilicus. The fascia at the umbilicus was closed with a 0 Vicryl UR 6 figure of 8 suture. The skin of all 3 incisions were closed with 4-0 Vicryl. The skin was cleaned and dried and skin affix was applied. Sponge instrument needle counts were correct. The patient was woken up, the ET was removed and he was taken to recovery in stable condition. There were no immediate complications.
--- NOTE | 2023-03-18 07:22 | W.PM.DS.N ---
Date of service: 03/18/23 Time of Service: 13:34 DS: Diagnosis Discharge Diagnosis (1) Bilateral inguinal hernia without obstruction or gangrene: Status: Acute Asessment and Plan: The patient is doing well post-op from their laparoscopic inguinal hernia surgery.? They are having no nausea or vomiting. They are tolerating liquids and a snack. The pt is not having any chest pain or SOB.? Their pain is adequately controlled. They have been able to urinate.? ?HEENT:? no eye pain/drainage/redness/swelling. Mild sore throat ?Cardio- NSR, no chest pain, BP stable- see VS record ?Pulm: no sob or productive cough. No hemoptysis ?Incision- dressing is c/d/i w/ no excessive bleeding or drainage scrotum- some air ?I discussed with the patient's mom the findings at the time of surgery and the patient?s progress. ?We reviewed expectations at home; what the patient could expect for recovery time, and in the post-operative period.? We discussed the importance of walking to avoid blood clots and pneumonia.? We discussed and reviewed the patient's post-operative wound care and dressing needs.?? We reviewed their step-salvador pain management plan, Rx called to the pharmacy of their choice.? We reviewed activity and limitations-see discharge instructions. We reviewed warning signs, and when to seek medical attention- see d/c instructions.?? Patient was given a postoperative follow-up appointment. Patient verbalized understanding of their postoperative instructions, how do to take care of themselves and their incision, and the pain management plan. Please see discharge instructions.? Discharge Plan Disposition Patient Disposition: Home Condition: Stable Discharge Details Reason For Visit: bilateral inguinal hernias Attending Provider: Julissa Ramachandran Primary Care Provider: Tank Stratton Home Meds and New Rx's Prescriptions: No Action acetaminophen [Tylenol Extra Strength] 500 mg tablet 500 mg PO Q6H PRN famotidine 20 mg tablet 20 mg PO BID Discharge Instructions Stand Alone Forms: Anesthesia Discharge InstNaldo, Trey Avalos (DSU) Activity:: see above Remove Dressings/Wound Care:: 24 hours Shower/Bathe:: 24 hours Diet:: As Tolerated Discharge Orders Discharge Orders: Discharge Order (Routine); Ordered 03/18/23 Ordered By: Julissa Ramachandran DS: Data Vitals/I&O Vitals and I&O: Vital Signs Temperature 97.7 F 03/18/23 06:13 Pulse 89 03/18/23 06:13 Pulse Rhythm Regular 03/18/23 06:13 Respiratory Rate 18 03/18/23 06:13 Respiratory Depth Deep 03/18/23 06:13 Blood Pressure 115/69 03/18/23 06:13 Pulse Oximetry 97 03/18/23 06:13 Oxygen Delivery Method Room Air 03/18/23 06:13 Oxygen Flow Rate 0 03/18/23 06:13 Pain Level 5 03/18/23 06:13 Intake & Output 03/17/23 03/17/23 03/18/23 11:59 23:59 11:59 Weight 144 lb 2.917 oz PFSH All Active Problems Thyroid cyst (Acute) 04/20/2018 Mood disorder (Acute) Marijuana abuse (Acute) Tobacco abuse (Acute) Thyroid disease (Acute) GERD (gastroesophageal reflux disease) (Chronic) Anxiety and depression (Chronic) Hernia (Chronic) RIVAS positive (Acute) Malar rash (Acute) Heart burn (Acute) Poor concentration (Acute) Bilateral inguinal hernia without obstruction or gangrene (Acute) Medical History Elevated liver function tests resolved Family history of diabetes mellitus Family history of systemic lupus erythematosus No acute medical problems Surgical History Hx of appendectomy Family History Mother Diabetes Type 1 Systemic lupus erythematosus Anemia Graves' disease Social History Smoking/Tobacco Use Status: Current-Occasional Tobacco Type: cigarettes Smoking risk assessment performed?: Yes Alcohol Intake: current Alcohol Intake frequency: a few times a month Drug use: Daily Substance use type: marijuana Details: pt denies recent alcohol use last marijuana t-2, inhaled Do you feel safe at home: Yes Do you feel safe in your relationship?: Yes Additional Social history: unable to assess privately
[2023-03-18 08:08] LABS: TSH (W/Ref FT4) 2.02 uIU/mL (0.36-3.74)
[2023-03-18] MEDS: ceFAZolin 2 GM/50 ML BAG IVPB (08:32)
[2023-03-18] MEDS: Bupivacaine 0.25% Pres-Free 30 ML VIAL (09:34)
[2023-03-18] MEDS: Normal Saline 10 ML VIAL IJ (10:10)
[2023-03-18] MEDS: Ketorolac 15 MG/ML VIAL IVP (10:10)
[2023-03-18] MEDS: HYDROmorphone 2 MG/ML SYR IVP ×2 (10:45→11:00)
--- NOTE | 2023-03-18 12:07 | W.ANESPOSTOP ---
Postoperative Evaluation Date, Time and Location Date Performed: 03/18/23 Time Performed: 12:07 Patient Location: Day Surgery Unit Vital Signs Most Recent Imported Vital Signs: Most Recent Vital Signs Temp Pulse Resp BP Pulse Ox 36.6 C 57 L 14 109/57 L 97 03/18/23 11:45 03/18/23 11:45 03/18/23 11:45 03/18/23 11:45 03/18/23 11:45 Pain Score Most Recent Pain Score: Most Recent Pain Score Pain Level 5 03/18/23 11:45 Assessment Mental Status: Awake (Alert & Oriented to Patient Baseline) Airway and Respiratory Function: Patent airway with normal (patient baseline) respiratory exam Cardiovascular Function: Hemodynamically Stable Hydration Status: Adequately Hydrated Nausea & Vomiting: No Nausea or Vomiting Pain: Pain is tolerable per patient Peripheral Nerve Block: Patient did not receive a nerve block
[2023-03-18] MEDS: traMADol 50 MG TAB PO (12:16)
--- NOTE | 2023-03-18 13:38 | W.PM.DSUDISC ---
Date of service: 03/18/23 Time of Service: 13:38 Discharge Plan Disposition Patient Disposition: Home Condition: Stable Discharge Details Reason For Visit: bilateral inguinal hernias Attending Provider: Julissa Ramachandran Primary Care Provider: Tank Stratton Home Meds and New Rx's Prescriptions: New oxycodone 5 mg tablet 5 mg PO Q6H PRNQty: 14 0RF Continued acetaminophen [Tylenol Extra Strength] 500 mg tablet 500 mg PO Q6H PRN famotidine 20 mg tablet 20 mg PO BID Discharge Instructions Additional Instructions: Activity at Home after surgery: 1. Make sure you walk outside at least 4 times per day 2. You should be able to climb a flight of stairs 3. No driving while in pain or taking pain medications 4. No strenuous activity or heavy lifting for 2 weeks (laparoscopic surgery) Diet, Nutrition, & wound healin. Avoid alcohol until after you are recovered from your surgery 2. Make sure to eat plenty of lean protein (meat, fish, eggs, cottage cheese, beans) 3. Eat a variety of fruits and vegetables. Eat plenty of high fiber foods to avoid constipation. 4. Drink plenty of liquids to stay hydrated and avoid constipation Pain Medications: 1. Tylenol 650mg every 6 hours as needed and Ibuprofen 600 mg every 6 hours as needed. You may alternate between the 2 medications every 3 hours 2. If a narcotic has been prescribed take as directed only for breakthrough pain For Constipation: 1. Take Milk of Magnesia or MiraLax as needed for constipation Other: 1. You may shower daily. Do not scrub the incisions 2. Do not soak the incisions for 1 week 3. You may alternate ice and heat as needed for pain and swelling Wound Care: 1. Keep the incisions clean and dry Please call our office if you develop: 1. Fevers >101.5 2. Nausea or Vomiting 3. Worsening pain 4. Redness and thick discharge from the wounds If after hours please call the Hospital at and ask to speak to the on-call surgeon Stand Alone Forms: Anesthesia Discharge Trey Yadav (DSU) Activity:: see above Shower/Bathe:: 24 hours Diet:: As Tolerated Discharge Orders Discharge Orders: Discharge Order (Routine); Ordered 03/18/23 Ordered By: Julissa Ramachandran DS: Diagnosis Discharge Diagnosis (1) Bilateral inguinal hernia without obstruction or gangrene: Status: Acute Asessment and Plan: The patient is doing well post-op from their bilateral laparoscopic inguinal hernia surgery.? They are having no nausea or vomiting. They are tolerating liquids and a snack. The pt is not having any chest pain or SOB.? Their pain is adequately controlled. They have been able to urinate.? ?HEENT:? no eye pain/drainage/redness/swelling. Mild sore throat ?Cardio- NSR, no chest pain, BP stable- see VS record ?Pulm: no sob or productive cough. No hemoptysis ?Incision- dressing is c/d/i w/ no excessive bleeding or drainage ?I discussed with the patient the findings at the time of surgery and the patient?s progress. ?We reviewed expectations at home; what the patient could expect for recovery time, and in the post-operative period.? We discussed the importance of walking to avoid blood clots and pneumonia.? We discussed and reviewed the patient's post-operative wound care and dressing needs.?? We reviewed their step-salvador pain management plan, Rx called to the pharmacy of their choice.? We reviewed activity and limitations-see discharge instructions. We reviewed warning signs, and when to seek medical attention- see d/c instructions.?? Patient was given a postoperative follow-up appointment. Patient verbalized understanding of their postoperative instructions, how do to take care of themselves and their incision, and the pain management plan. Please see discharge instructions.?
[2023-03-18] MEDS: oxyCODONE 5 MG TAB PO (14:00)
== END 2023-03-18 14:25 | disposition home or self-care (01) ==
PROVIDERS: PCP Family Medicine; Visit Provider Surgery
PROC: (CPT 49650; principal; 2023-03-18 07:30)
DX: K40.20 Bilateral inguinal hernia, without obstruction or gangrene, not specified as recurrent (principal); E04.1 Nontoxic single thyroid nodule; F12.10 Cannabis abuse, uncomplicated; F17.210 Nicotine dependence, cigarettes, uncomplicated
CPT/HCPCS: 49650; 36415; 84443; C1781; J0690; J1100; J1170; J1885; J2001; J2250; J2405; J2704

== ENCOUNTER 2024-10-06 09:47 | Emergency (ER) | payer OTHER, SELFPAY ==
[2024-10-06 09:53] VITALS: BP 118/77; PULSE 79; RESP 14; TEMP 36.7; O2SAT 98
--- NOTE | 2024-10-06 10:00 | DI.CT_ITS ---
Exam(s) CT HEAD CERVICAL SPINE WO EXAM: CT HEAD CERVICAL SPINE WO CLINICAL HISTORY: fall, right sided head and neck pain. TECHNIQUE: Imaging Protocol: Axial computed tomography images with coronal and sagittal reformatted images were created and reviewed COMPARISON: No exams were available for comparison FINDINGS: CT Head: Ventricles and Extra axial spaces: Normal in size and morphology for the patient's age. Hemorrhage: None. Cerebral parenchyma: Normal. Midline shift: None. Brainstem/Cerebellum: Normal. Calvarium: Normal. Visualized Paranasal sinuses/Mastoids: Clear. Soft Tissues: Unremarkable. CT Cervical Spine: Bones: No acute fracture or subluxation. There is straightening of the normal cervical lordosis. Thi s may be due to muscle spasm or patient positioning. Soft Tissues: Unremarkable. Lung Apices: Clear. IMPRESSION: 1. No acute intracranial process. 2. No acute fracture or subluxation in the cervical spine. RADIATION DOSE DELIVERED: 1,097.66mGy.cm Total DLP DATA REPOSITORY: All CT scans at this facility are submitted to the National Radiology Data Registry (NRDR) Dose Index Registry (DIR) with the [employer] (ACR). RADIATION OPTIMIZATION: All CT scans at this facility use at least one of these dose optimization te chniques: automated exposure control; mA and/or kV adjustment per patient size (includes targeted exa ms where dose is matched to clinical indication); or iterative reconstruction.
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
[2024-10-06] MEDS: Acetaminophen 500 MG TAB 1000 MG PO (10:51)
[2024-10-06 11:49] VITALS: BP 122/80; PULSE 62; RESP 16; TEMP 36.7; O2SAT 100
--- NOTE | 2024-10-07 09:39 | NUR.NOTE ---
Accessed Pt chart to identify reason for the visit. Pt is here and would like a Work Note. Nursing Note:
== END 2024-10-06 11:52 | disposition home or self-care (01) ==
PROVIDERS: Emergency Provider Emergency Medicine; PCP Family Medicine
DX: S16.1XXA Strain of muscle, fascia and tendon at neck level, initial encounter (principal); S09.8XXA Other specified injuries of head, initial encounter; F17.210 Nicotine dependence, cigarettes, uncomplicated; W01.198A Fall on same level from slipping, tripping and stumbling with subsequent striking against other object, initial encounter; Y93.89 Activity, other specified; Y92.89 Other specified places as the place of occurrence of the external cause; Y99.0 Civilian activity done for income or pay
CPT/HCPCS: 99284; 70450; 72125

== ENCOUNTER 2024-10-22 14:12 | Emergency (ER) | payer MEDICAID, SELFPAY ==
[2024-10-22 14:19] VITALS: BP 105/63; PULSE 85; RESP 10; TEMP 37.1; O2SAT 96
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
[2024-10-22 16:41] LABS: TSH (W/Ref FT4) 0.61 uIU/mL (0.36-3.74)
[2024-10-22 16:50] VITALS: BP 124/83; PULSE 81; RESP 17; O2SAT 99
== END 2024-10-22 17:12 | disposition home or self-care (01) ==
PROVIDERS: Emergency Provider Emergency Medicine; PCP Nurse Practitioner Family
DX: S16.1XXA Strain of muscle, fascia and tendon at neck level, initial encounter (principal); V48.5XXA Car driver injured in noncollision transport accident in traffic accident, initial encounter; F17.210 Nicotine dependence, cigarettes, uncomplicated; Z86.39 Personal history of other endocrine, nutritional and metabolic disease; R63.4 Abnormal weight loss
CPT/HCPCS: 99284; 72125; 84443; 99283